=== PATIENT | female | born 1970 | race African-American/Black ===

== ENCOUNTER 2021-11-28 09:23 | Emergency (ER) | payer OTHER ==
[2021-11-28 09:33] VITALS: BP 110/73; PULSE 90; TEMP 98.1; BMI 23.0
== END 2021-11-28 11:18 | disposition home or self-care (01) ==
LOC: JERFT 09:23 → JER 09:23 → JERFT 11:18
DX: S92.415A Nondisplaced fracture of proximal phalanx of left great toe, initial encounter for closed fracture (principal); W22.8XXA Striking against or struck by other objects, initial encounter; Y92.9 Unspecified place or not applicable
CPT/HCPCS: 73630-TC-LT; 99284-25